=== PATIENT | male | born 1930 | race Caucasian/White ===

== ENCOUNTER 2019-07-26 22:58 | Emergency (ER) | payer MEDICARE, OTHER ==
[2019-07-26] MEDS ORDERED: TENECTEPLASE INJ 50 MG KIT IV ONE (23:00)
[2019-07-26] MEDS ORDERED: ASPIRIN 81 MG TABLET, CHEWABLE ONE (23:00)
[2019-07-26] MEDS ORDERED: ENOXAPARIN SODIUM INJ 30 MG/0.3 ML DISP.SYRIN ONE (23:00)
[2019-07-26] MEDS ORDERED: CLOPIDOGREL BISULFATE 75 MG TABLET ONE (23:00)
--- NOTE | 2019-07-26 23:16 | ER Document Report ---
ED Cardiac - General Stated Complaint: CHEST PAINS Time Seen by Provider: 07/26/19 23:10 Mode of Arrival: Wheelchair Information source: Patient TRAVEL OUTSIDE OF THE [place] IN LAST 30 DAYS: No - HPI Patient complains to provider of: Chest pain Is the pain a: New problem Chest pain location: Under breast, Other - Referral of chest pain to left shoulder times months but worse tonight associated with diaphoresis Took 2 Motrin because of his pain. 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 Quality of pain: Severe, Cramping Chest pain radiation location: Left shoulder Severity now: Severe Severity at worst: Severe Pain level currently: 3 Chest pain precipitating factors: Physical Exertion Cardiac risk factors: Diabetes, Hypertension, Dyslipidemia Positive cardiac history: No Associated symptoms: Diaphoresis, Jaw pain, Shortness of breath, Weakness Exacerbated by: Activity Relieved by: Nothing Similar symptoms previously: Yes Recently seen / treated by doctor: Yes - Related Data Allergies/Adverse Reactions: Sulfa (Sulfonamide Antibiotics) Allergy (Verified 07/26/19 23:14) Past Medical History - General Information source: Patient, Relative - His daughter - Social History Smoking Status: Never Smoker Cigarette use (# per day): No Chew tobacco use (# tins/day): No Frequency of alcohol use: Occasional Drug Abuse: None Lives with: Family Family History: Reviewed & Not Pertinent Review of Systems - Review of Systems Constitutional: No symptoms reported EENT: No symptoms reported Cardiovascular: Chest pain, Palpitations, Dyspnea, Lightheaded Respiratory: No symptoms reported Gastrointestinal: No symptoms reported Genitourinary: No symptoms reported Male Genitourinary: No symptoms reported Musculoskeletal: No symptoms reported Skin: Other - diaporesis Hematologic/Lymphatic: No symptoms reported Neurological/Psychological: No symptoms reported Physical Exam - Vital signs Vitals: Resp Pulse Ox 19 99 07/26/19 23:08 07/26/19 23:08 - Cardiovascular Rhythm: Regular Heart sounds: Normal auscultation Murmur: No Friction rub: No Rosanne's crunch: No Normal capillary refill: Yes Course - Re-evaluation Re-evalutation: 07/26/19 23:33 Patient continues to have vital signs within normal limits and is very oriented his daughter is present at bedside as well. - Vital Signs Vital signs: Temp Pulse Resp BP Pulse Ox 20 99/76 L 98 07/26/19 23:32 07/26/19 23:32 07/26/19 23:32 07/26/19 23:34 Vital signs stable at this time upon arrival and at 2334 - Laboratory Result Diagrams: 07/26/19 23:06 07/26/19 23:06 Laboratory results interpreted by me: 07/26/19 07/26/19 23:06 23:06 RBC 3.17 L Hgb 10.5 L Hct 30.6 L Sodium 136.4 L Chloride 110 H Carbon Dioxide 13 L BUN 35 H Creatinine 1.85 H Est GFR ( Amer) 42 L Est GFR (MDRD) Non-Af 35 L Glucose 252 H - Diagnostic Test Radiology reviewed: Reports reviewed - EKG Interpretation by Me EKG shows normal: Sinus rhythm - Patient has inferior ST elevation to lead II III AVF Rate: Normal - 67 BPM - Transfer of Care Care transferred to following provider: Dr. Tom Berry and also to Dr. Winter ER doctor Critical Care Note - Critical Care Note Total time excluding time spent on procedures (mins): 31 Discharge - Discharge Clinical Impression: STEMI (ST elevation myocardial infarction) Condition: Critical Disposition: [facility] Admitting Provider: tom storm Additional Instructions: Myriam advised transfer to ER for reevaluation upon airflight.
[2019-07-26 23:18] LABS: ABSOLUTE EOSINOPHILS # (AUTO) 0.1 10^3/uL (0.0-0.6); ABSOLUTE LYMPHOCYTES (AUTO) 3.4 10^3/uL (0.5-4.7); ABSOLUTE MONOCYTES (AUTO) 0.7 10^3/uL (0.1-1.4); ABSOLUTE NEUT (AUTO) 3.5 10^3/uL (1.7-8.2); BASOPHILS % (AUTO) 0.4 % (0-2); HEMATOCRIT 30.6 % (37.9-51.0); HEMOGLOBIN 10.5 g/dL (13.5-17.0); LYMPHOCYTES % (AUTO) 44.6 % (13-45); MEAN CORPUSCULAR HGB CONC 34.1 g/dL (32.0-36.0); MEAN CORPUSCULAR VOLUME 97 fl (80-97); MONOCYTES % (AUTO) 9.3 % (3-13); PLATELET COUNT 194 10^3/uL (150-450); RED BLOOD COUNT 3.17 10^6/uL (4.35-5.55); RED CELL DISTRIBUTION WIDTH 13.3 % (11.5-14.0); SEGMENTED NEUTROPHILS % (AUTO) 44.7 % (42-78); TOTAL CELLS COUNTED % (AUTO) 100 %; WHITE BLOOD COUNT 7.7 10^3/uL (4.0-10.5)
[2019-07-26] MEDS ORDERED: MORPHINE SULFATE 10 MG/ML INJ IV ONE (23:24)
[2019-07-26] MEDS ORDERED: ONDANSETRON HCL INJ/PF 4 MG/2 ML SDV ONE (23:24)
[2019-07-26] MEDS ORDERED: ONDANSETRON HCL INJ/PF 4 MG/2 ML SDV IV ONE (23:27)
[2019-07-26 23:30] LABS: INTERNATIONAL RATION (INR) 1.01; PROTHROMBIN TIME 13.3 SEC (11.4-15.4)
[2019-07-26 23:35] LABS: ALBUMIN 3.7 g/dL (3.5-5.0); ALKALINE PHOSPHATASE 55 U/L (38-126); ANION GAP 13 (5-19); ASPARTATE AMINO TRANSFERASE 20 U/L (17-59); BILIRUBIN,DIRECT 0.2 mg/dL (0.0-0.4); BILIRUBIN,TOTAL 0.2 mg/dL (0.2-1.3); BLOOD UREA NITROGEN 35 mg/dL (7-20); CALCIUM 8.8 mg/dL (8.4-10.2); CARBON DIOXIDE 13 mmol/L (22-30); CHLORIDE 110 mmol/L (98-107); CREATINE KINASE 73 U/L (55-170); GLUCOSE 252 mg/dL (75-110); POTASSIUM 4.2 mmol/L (3.6-5.0); TOTAL PROTEIN 6.7 g/dL (6.3-8.2)
--- NOTE | 2019-07-26 23:38 | RADIOLOGY REPORT (SQ) ---
EXAM DESCRIPTION: XR CHEST 1 VIEW COMPLETED DATE/TME: 07/26/2019 23:13 CLINICAL HISTORY: 89 years Male, STEMI COMPARISON: One day prior. NUMBER OF VIEWS/TECHNIQUE: 1/AP FINDINGS: Clear lungs of adequate volume, and normal cardiac silhouette. No pneumothorax. Stable bony thorax. IMPRESSION: No significant change.
[2019-07-26 23:46] LABS: CREATINE KINASE MB 1.32 ng/mL (<4.55)
[2019-07-26 23:47] LABS: TROPONIN I < 0.012 ng/mL
[2019-07-27 00:22] VITALS: BP 122/66
--- NOTE | 2019-07-27 10:07 | EKG REPORT ---
SEVERITY:- ABNORMAL ECG - SINUS RHYTHM INFERIOR INJURY, ACUTE INFARCT PROBABLE POSTERIOR INFARCT LATERAL LEADS ARE ALSO INVOLVED : Confirmed by: Chadd Lopes MD 27-Jul-2019 10:06:52
--- NOTE | 2019-07-29 07:55 | EKG REPORT ---
SEVERITY:- ABNORMAL ECG - SINUS RHYTHM ATRIAL PREMATURE COMPLEX INFERIOR INJURY, PROBABLE EARLY ACUTE INFARCT CONSIDER POSTERIOR WALL INVOLVEMENT : Confirmed on behalf of: Chadd Lopes MD 29-Jul-2019 07:55:23
== END 2019-07-26 23:50 | disposition short-term general hospital (02) ==
LOC: ER 22:58
DX: I21.3 ST elevation (STEMI) myocardial infarction of unspecified site (principal); R07.9 Chest pain, unspecified; R61 Generalized hyperhidrosis; M25.512 Pain in left shoulder; R68.84 Jaw pain; R06.02 Shortness of breath; R53.1 Weakness; E78.5 Hyperlipidemia, unspecified; E11.9 Type 2 diabetes mellitus without complications; I10 Essential (primary) hypertension
CPT/HCPCS: 93005 ×2; 99291; 96374; 96375; 36415; 82553; 82550; 85025; 85610; 80053; 84484; 71045; 93010; J3101; A9270 ×2; J2270; J2405; J1650

== ENCOUNTER 2019-08-14 11:55 | Emergency (ER) | payer MEDICARE, OTHER ==
--- NOTE | 2019-08-14 12:13 | ER Document Report ---
ED Medical Screen (RME) - General Chief Complaint: Chest Pain Stated Complaint: HEART RATE TO HIGH Time Seen by Provider: 08/14/19 12:06 Mode of Arrival: Ambulatory Information source: Patient Notes: Patient presents with tachycardia and mild shortness of breath. Patient was at cardiac rehab and they noticed that his heart rate was very fast so they sent him here for further evaluation. Patient denies any chest pain nausea or vomiting. Patient does report having a recent [place] earlier this month. I have greeted and performed a rapid initial assessment of this patient. A comprehensive ED assessment and evaluation of the patient, analysis of test results and completion of the medical decision making process will be conducted by additional ED providers. TRAVEL OUTSIDE OF THE [place] IN LAST 30 DAYS: No - Related Data Allergies/Adverse Reactions: Sulfa (Sulfonamide Antibiotics) Allergy (Verified 08/14/19 12:11) Past Medical History - Past Medical History Cardiac Medical History: Reports: Hx Hypercholesterolemia, Hx Hypertension Physical Exam - Cardiovascular Rhythm: Irregularly irregular, Tachycardia Heart sounds: S1 appreciated, S2 appreciated
--- NOTE | 2019-08-14 12:52 | RADIOLOGY REPORT (SQ) ---
EXAM DESCRIPTION: CHEST 2 VIEWS COMPLETED DATE/TIME: 08/14/2019 12:42 pm REASON FOR STUDY: sob, tachycardia COMPARISON: 07/26/2019. EXAM PARAMETERS: NUMBER OF VIEWS: two views TECHNIQUE: Digital Frontal and Lateral radiographic views of the chest acquired. RADIATION DOSE: NA LIMITATIONS: none FINDINGS: LUNGS AND PLEURA: Chronic interstitial scarring. No infiltrates, masses or pneumothorax. No pleural effusion. MEDIASTINUM AND HILAR STRUCTURES: No masses or contour abnormalities. HEART AND VASCULAR STRUCTURES: Heart normal size. No evidence for failure. BONES: No acute findings. Degenerative changes in the spine. HARDWARE: None in the chest. OTHER: No other significant finding. IMPRESSION: CHRONIC SCARRING. NO ACUTE RADIOGRAPHIC FINDING IN THE CHEST. TECHNICAL DOCUMENTATION: JOB ID: [id number] [employer]- All Rights Reserved Reading location - IP/workstation name: [email or web address]
[2019-08-14 13:26] LABS: ABSOLUTE BASOPHILS # (AUTO) 0.1 10^3/uL (0.0-0.2); ABSOLUTE EOSINOPHILS # (AUTO) 0.2 10^3/uL (0.0-0.6); ABSOLUTE LYMPHOCYTES (AUTO) 2.1 10^3/uL (0.5-4.7); ABSOLUTE MONOCYTES (AUTO) 0.6 10^3/uL (0.1-1.4); ABSOLUTE NEUT (AUTO) 4.8 10^3/uL (1.7-8.2); HEMATOCRIT 28.8 % (37.9-51.0); HEMOGLOBIN 9.5 g/dL (13.5-17.0); LYMPHOCYTES % (AUTO) 26.4 % (13-45); MEAN CORPUSCULAR HEMOGLOBIN 30.9 pg (27.0-33.4); MEAN CORPUSCULAR VOLUME 94 fl (80-97); MONOCYTES % (AUTO) 7.8 % (3-13); PLATELET COUNT 470 10^3/uL (150-450); RED BLOOD COUNT 3.08 10^6/uL (4.35-5.55); RED CELL DISTRIBUTION WIDTH 13.6 % (11.5-14.0); SEGMENTED NEUTROPHILS % (AUTO) 61.8 % (42-78); TOTAL CELLS COUNTED % (AUTO) 100 %; WHITE BLOOD COUNT 7.8 10^3/uL (4.0-10.5)
[2019-08-14 13:47] LABS: ALBUMIN 3.7 g/dL (3.5-5.0); ALKALINE PHOSPHATASE 83 U/L (38-126); ANION GAP 14 (5-19); ASPARTATE AMINO TRANSFERASE 28 U/L (17-59); BILIRUBIN,DIRECT 0.4 mg/dL (0.0-0.4); BILIRUBIN,TOTAL 0.5 mg/dL (0.2-1.3); BLOOD UREA NITROGEN 20 mg/dL (7-20); CALCIUM 9.3 mg/dL (8.4-10.2); CARBON DIOXIDE 21 mmol/L (22-30); CHLORIDE 102 mmol/L (98-107); GLUCOSE 170 mg/dL (75-110); POTASSIUM 3.9 mmol/L (3.6-5.0); TOTAL PROTEIN 7.2 g/dL (6.3-8.2)
--- NOTE | 2019-08-14 16:15 | ER Document Report ---
ED General - General Chief Complaint: Chest Pain Stated Complaint: HEART RATE TO HIGH Time Seen by Provider: 08/14/19 12:06 Mode of Arrival: Ambulatory Notes: 89-year-old male was sent in from cardiac rehab due to elevated heart rate. Patient states that his heart rate was 91 however nursing received a report that his heart rate was bouncing between the 100s and 140s. During that episode patient states he was not having any chest pain or shortness of breath. States he had an [place] that was treated with stents at the beginning of July at [facility]. Admits dyspnea on exertion with normal activities of daily living since the stent was placed at [facility] at the beginning of the month. Denies any worsening during rehab or any shortness of breath at present. TRAVEL OUTSIDE OF THE [place] IN LAST 30 DAYS: No - Related Data Allergies/Adverse Reactions: Sulfa (Sulfonamide Antibiotics) Allergy (Verified 08/14/19 12:11) Past Medical History - General Information source: Patient - Social History Smoking Status: Former Smoker - Quit when he was a teenager. Chew tobacco use (# tins/day): No Frequency of alcohol use: Social - Wine every evening. Drug Abuse: None Family History: Reviewed & Not Pertinent Patient has suicidal ideation: No Patient has homicidal ideation: No - Past Medical History Cardiac Medical History: Reports: Hx Hypercholesterolemia, Hx Hypertension Review of Systems - Review of Systems Constitutional: No symptoms reported EENT: No symptoms reported Cardiovascular: See HPI - Elevated heart rate per cardiac rehab, patient does not feel this., Dyspnea - On exertion Respiratory: See HPI - Dyspnea on exertion. -: Yes All other systems reviewed and negative Physical Exam - Vital signs Vitals: Temp Pulse Resp BP Pulse Ox 97.9 F 120 H 18 152/108 H 99 08/14/19 12:10 08/14/19 12:10 08/14/19 12:10 08/14/19 12:10 08/14/19 12:10 Interpretation: Hypertensive, Tachycardic - Notes Notes: GENERAL: Alert, interacts well. No acute distress. HEAD: Normocephalic, atraumatic EYES: Pupils equal, round and reactive to light, extraocular movements intact. ENT: Oral mucosa moist, tongue midline. NECK: Full range of motion, supple, trachea midline. LUNGS: Clear to auscultation bilaterally, no wheezes, rales or rhonchi, no respiratory distress. HEART: Regular rate and rhythm, no murmurs, gallops, rubs. ABDOMEN: Soft, nontender, nondistended, bowel sounds present in all 4 quadrants. EXTREMITIES: Moves all 4 extremities spontaneously, no edema, radial and dorsalis pedis pulses 2/4 bilaterally. No cyanosis. NEUROLOGICAL: Alert and oriented x3, normal speech, biceps and patellar DTRs 2+ bilaterally. PSYCH: Normal mood, normal affect. SKIN: Warm, Dry, normal turgor, old ecchymoses noted across the right upper extremity. Course - Re-evaluation Re-evalutation: 08/14/19 20:02 CBC shows anemia with hemoglobin 9.5, CMP shows a slightly low CO2 at 21, creatinine slightly elevated at 1.55 however this is better than it was on the fourth at 1.85, troponin is negative x2 at 0.031 and 0.038, not a significant uptrend after 5 hours, chest x-ray shows chronic scarring but no acute process. After discussion with nursing turns out that the patient's heart rate was actually between the 100s and 140s while he was at cardiac rehab and not really doing much to exert himself which is why he was sent over here. Patient's heart rate has remained relatively normal since being here. A couple of PACs and a couple of PVCs but no atrial fibrillation. Patient has been encouraged to follow-up with his improvement spec before he returns to cardiac rehab. Discussed with them whether or not he might need to be put on a beta-gabriele or if he simply needs to heal for longer before he returns to cardiac rehab. Patient was also supposed to have an iron infusion today but he missed it because he was still in the emergency department. Discussed possibly coming to [place] for that iron infusion if his primary care doctor would write for the iron infusion through our infusion center. After further discussion however I discovered that the patient's hemoglobin was previously in the sevens and they have been using oral iron but he just did not like it because it turned his stool black. Discussed with daughter that his hemoglobin has actually improved compared to their report that his hemoglobin was 7.3 two weeks ago and she s tated that she has been continuing to give him his oral iron. At this point I stated that they should discuss with her primary care physician whether or not he truly needs an infusion as he appears to be responding well to the oral iron. They are agreeable to this plan and further discussion with her primary care physician and improvement spec. - Vital Signs Vital signs: Temp Pulse Resp BP Pulse Ox 97.9 F 120 H 20 142/59 H 97 08/14/19 12:10 08/14/19 12:10 08/14/19 18:06 08/14/19 18:06 08/14/19 18:06 - Laboratory Result Diagrams: 08/14/19 13:03 08/14/19 13:03 Laboratory results interpreted by me: 08/14/19 08/14/19 13:03 13:03 RBC 3.08 L Hgb 9.5 L Hct 28.8 L Plt Count 470 H Sodium 136.6 L Carbon Dioxide 21 L Creatinine 1.55 H Est GFR ( Amer) 51 L Est GFR (MDRD) Non-Af 42 L Glucose 170 H - EKG Interpretation by Me Additional EKG results interpreted by me: 08/14/19 16:15 EKG shows sinus rhythm at a rate of with no ST segment elevations or depressions, no T wave inversions, normal axis, normal intervals, there is rapid R wave progression per my interpretation. Discharge - Discharge Clinical Impression: Tachycardia Anemia Qualifiers: Anemia type: unspecified type Qualified Code(s): D64.9 - Anemia, unspecified Condition: Stable Disposition: HOME, SELF-CARE Additional Instructions: I have printed you a copy of your labs. Please give them to your primary care physician and your improvement spec. Seeing as your heart rate went up to the 140s while you were just barely starting to do your cardiac rehab I strongly recommend that you follow-up with your improvement spec and your primary care physician to discuss with them when they want you to restart cardiac rehab as this heart rate is probably too high when you are not exerting yourself and it also did not resolve for over 30 minutes when resting. Today your hemoglobin was 9.5. I know you missed your iron infusion however you stated that your hemoglobin was previously 7.3 a few weeks ago. If your hemoglobin is continuing to improve while only using oral iron you may not need an iron infusion anymore. Please discuss this with your primary care physician. While you wait to discuss this with them please continue taking iron 325 mg along with vitamin C once a day.
--- NOTE | 2019-08-14 18:25 | EKG REPORT ---
SEVERITY:- NORMAL ECG - SINUS RHYTHM : Confirmed by: Chadd Lopes MD 14-Aug-2019 18:25:25
[2019-08-14 20:15] VITALS: BP 134/79
== END 2019-08-14 20:30 | disposition home or self-care (01) ==
LOC: ER 11:55
DX: R00.0 Tachycardia, unspecified (principal); I49.1 Atrial premature depolarization; I49.3 Ventricular premature depolarization; D64.9 Anemia, unspecified; Z79.899 Other long term (current) drug therapy; R06.09 Other forms of dyspnea; I25.2 Old myocardial infarction; Z95.5 Presence of coronary angioplasty implant and graft; I10 Essential (primary) hypertension; Z87.891 Personal history of nicotine dependence; Z88.2 Allergy status to sulfonamides
CPT/HCPCS: 36415; 71046; 80053; 84484; 85025; 93005; 93010; 99285